=== PATIENT | male | born 2000 | race Two or more races ===

== ENCOUNTER 2023-07-05 20:01 | Emergency (ER) | payer OTHER, SELFPAY ==
[2023-07-05 20:03] VITALS: BP 160/84; PULSE 81; RESP 16; TEMP 37.2; O2SAT 100
[2023-07-05 23:29] VITALS: BP 134/84; PULSE 78; RESP 15; O2SAT 99
--- NOTE | 2023-07-05 23:31 | ED.GENADULT ---
HPI - General Adult General Chief complaint: Epistaxis Stated complaint: nose bleed Time Seen by Provider: 07/05/23 23:06 Source: patient Mode of arrival: ambulatory Limitations: no limitations History of Present Illness HPI narrative: This is a 22-year-old male who presents to the ED with chief complaint of intermittent epistaxis. Reports that whenever he has to blow his nose he is seeing some white spots on the tissue. Also reports that since he developed URI symptoms 1 week ago he has had intermittent mild abdominal pains. States he was having subjective fever initially but this has since resolved. Reports he has had 6 months of back pain intermittently. 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 Denies urinary symptoms, troubles with bowel movements, nausea, vomiting, headache, LOC. Review of Systems Review of Systems: All systems as dictated in HPI Exam Narrative: GENERAL: Well-appearing, well-nourished, and in no acute distress. HEAD: Normocephalic, atraumatic. EYES: PERRLA and EOMI. ENT: Nares clear, no rhinorrhea or epistaxis. Mucous membranes moist. Oropharynx without tonsillar hypertrophy exudate or other lesions. NECK: Supple. No adenopathy or masses. CHEST: No respiratory distress. Clear to auscultation. No wheezes rales or rhonchi HEART: Regular rate and rhythm. No murmur heard. Normal peripheral pulses. ABDOMEN: Negative flank tenderness bilaterally. Soft, nontender, nondistended, normal active bowel sounds. MSK: Normal range of motion. No edema. SKIN: Warm, dry, no rash. NEURO: Alert and oriented x3. No focal deficits. PSYCH: Normal mood and affect. Course Vital Signs Vital signs: Vital Signs Temperature 99 F 07/05/23 20:03 Pulse Rate 81 07/05/23 20:03 Respiratory Rate 16 07/05/23 20:03 Blood Pressure 160/84 H 07/05/23 20:03 Pulse Oximetry 100 07/05/23 20:03 Oxygen Delivery Room Air 07/05/23 20:03 Temperature 99 F 07/05/23 20:03 Pulse Rate 80 07/05/23 23:54 Respiratory Rate 15 07/05/23 23:54 Blood Pressure 130/82 07/05/23 23:54 Pulse Oximetry 100 07/05/23 23:54 Oxygen Delivery Room Air 07/05/23 20:03 Medical Decision Making MDM Narrative Medical decision making narrative: This is a 22-year-old male who presents to the ED with chief complaint of viral symptoms for the past week as well as seeing blood on the tissue paper when he blew his nose earlier. Additional complaints of 6 months of back pain. Vitals are normal. Exam is benign. No acute abdomen and no flank tenderness. He is resting comfortably. Symptoms consistent with viral syndrome. He declines viral swabs. Pt will be discharged in stable condition. Return precautions given and supportive measures discussed. Pt is understanding and agreeable with plan for discharge and follow-up with PCP. Vital Signs Vital Signs: Vital Signs Temperature 99 F 07/05/23 20:03 Pulse Rate 81 07/05/23 20:03 Respiratory Rate 16 07/05/23 20:03 Blood Pressure 160/84 H 07/05/23 20:03 Pulse Oximetry 100 07/05/23 20:03 Oxygen Delivery Room Air 07/05/23 20:03 Temperature 99 F 07/05/23 20:03 Pulse Rate 80 07/05/23 23:54 Respiratory Rate 15 07/05/23 23:54 Blood Pressure 130/82 07/05/23 23:54 Pulse Oximetry 100 07/05/23 23:54 Oxygen Delivery Room Air 07/05/23 20:03 Discharge Plan Discharge Clinical Impression: Acute viral syndrome Patient Disposition: Home, Self-Care Condition: Stable Instructions: Antibiotic Form Additional Instructions: Your exam is very reassuring today. It is likely that you have a viral syndrome. It should resolve over the next 3 days. Make sure that you are staying well-hydrated. Please follow-up with primary care doctor attached in the paperwork. If you find that you have uncontrollable fevers, uncontrollable pain, vomiting or troubles with urination please
[2023-07-05 23:54] VITALS: BP 130/82; PULSE 80; RESP 15; O2SAT 100
== END 2023-07-05 23:55 | disposition home or self-care (01) ==
PROVIDERS: Emergency Provider Physician Assistant
DX: B34.9 Viral infection, unspecified (principal)
CPT/HCPCS: 99281